=== PATIENT | male | born 1990 | race Two or more races ===

== ENCOUNTER 2024-04-16 14:04 | Emergency (ER) | payer SELFPAY ==
[~2024-04-16] VITALS: Ht 185.4 cm; Wt 145.6 kg
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
[2024-04-16 14:39] VITALS: BP 154/75; PULSE 90; RESP 18; TEMP 99; O2SAT 97
--- NOTE | 2024-04-16 14:57 | DVH ---
CT CHEST WITHOUT CONTRAST INDICATION: : 33 old Male [facility] EXAM DATE: 04/16/2024 02:27 PM COMPARISON: None RADIATION DOSE: CTDIvol: 29.12 mGy, DLP: 1109.85 mGy*cm PROCEDURE: Helical CT images were obtained of the chest without intravenous contrast. Sagittal and c oronal reconstructions are provided. ADDITIONAL IMAGES / REFORMATS: None All CT scans at this medical facility are performed using dose modulation techniques as appropriate t o a performed exam including the following: Automated exposure control was utilized; adjustment of th e MA and/or KV according to patient size; and use of iterative reconstruction technique. FINDINGS: Bones: Old posterior 11th left rib fracture. Visualized Abdomen: Hepatic steatosis. Chest Wall: Normal. Soft tissues: Normal. Mediastinum: Normal. Heart: Normal. Vessels: Normal. Lymph Nodes: Normal. Pleura: Normal. Airways: Normal. Lung: Normal. Other: None IMPRESSION: No acute intrathoracic abnormality. Old posterior 11th left rib fracture. Hepatic steatosis.
[2024-04-16] MEDS ORDERED: CYCL-837 PO (15:18)
[2024-04-16] MEDS ORDERED: IBUP-1455 PO (15:18)
[2024-04-16] MEDS: KETOROLAC TROMETH 30 MG/ML 1ML VIAL IM ONE (15:23)
--- NOTE | 2024-04-16 19:34 | ECG ---
[facility] Test Date: 2024-04-16 Test Time: 14:11:39 Pat Name: OLIVIA MUELLER Department: ER Room: Gender: M Comb Setter: FLOYD : 1990 Requested By: EMERGENCY EMERGENCY Order Number: [id number] Reading MD: Measurements Intervals [place] Rate: 78 P: 36 ME: 129 QRS: 83 QRSD: 102 T: 47 QT: 375 QTc: 428 Interpretive Statements Sinus rhythm RSR' in V1 or V2, right VCD or RVH Please click the below link to view image of tracing.
== END 2024-04-16 15:26 | disposition home or self-care (01) ==
LOC: ER 14:04
DX: R07.89 Other chest pain (principal); Z79.899 Other long term (current) drug therapy; V43.52XA Car driver injured in collision with other type car in traffic accident, initial encounter; Y93.I9 Activity, other involving external motion; Y92.488 Other paved roadways as the place of occurrence of the external cause; Y99.8 Other external cause status
CPT/HCPCS: 71250; 93005; 96372; 99285; J1885